=== PATIENT | male | born 1955 | race Caucasian/White ===

== ENCOUNTER 2018-07-13 08:53 | Outpatient (CLI) | payer OTHER ==
--- NOTE | 2018-07-13 13:30 | HP ---
HISTORY OF PRESENT ILLNESS: Mr. Tanvir Bocanegra is a very pleasant 62-year-old gentleman, who [facility] evaluation of edema and erythema of the left lower extremity, which has been present for a little over 8 weeks. The patient states that in the summer of last year, he experienced severe itching of his left lower extremity. He states that because of the severity of the itching of his left lower leg, he was seen in the emergency department. At a followup visit with Dr. Burgos, the patient was placed on a course of p.o. antibiotics to which he was allergic. The patient states that he was then placed on Bactrim to which he was also allergic. The patient states that he was seen by Dr. Burgos on 4 occasions, and at the time of his last visit with Dr. Burgos, referred to the [facility] for further evaluation and treatment. The patient states that due to the severity of the itching of his left lower leg, he was unable to work and also experienced a loss of appetite. PAST MEDICAL HISTORY: 1. Diabetes mellitus. 2. Hypertension. 3. Arthritis. PAST SURGICAL HISTORY: Left foot surgery. MEDICATIONS: 1. Norvasc. 2. Celexa. 3. Adderall. 4. Atarax. 5. Quinapril. 6. Viagra. ALLERGIES: SULFA. SOCIAL HISTORY: Social history is significant for tobacco use of up to 1/2 pack of cigarettes per day for 40 years. The patient admits to the consumption of 2 drinks per day also for 40 years. FAMILY HISTORY: Family history is negative for diabetes mellitus or coronary artery disease. PHYSICAL EXAMINATION: VITAL SIGNS: Temperature 98.3, pulse 72, respirations 19, and blood pressure 122/71. Accu-Chek 155. GENERAL: A 62-year-old gentleman, sitting on table in examination room, in no acute distress. HEENT: Normocephalic, atraumatic. NECK: No nuchal rigidity. CHEST: Clear to auscultation. CV: Regular rate and rhythm. ABDOMEN: Soft. EXTREMITIES: Erythema and edema of the left lower leg is present on exam today. Varicosities and hemosiderin deposition are also present over the right and left lower legs. No open wounds are present over the right or left lower leg. No maceration of the skin of the left lower leg is present. A dorsalis pedis pulse is palpable on the left. NEURO: Grossly nonfocal. ASSESSMENT AND PLAN: 1. Varicose veins of lower extremities with inflammation. The patient has been given a prescription for Synalar ointment 0.025% for stasis dermatitis. He has been instructed to cleanse the skin of his left lower leg with Dove soap and water, pat dry, and apply the ointment after cleansing and patting dry. The patient states he will return to clinic in 2 weeks, if the preceding measures have failed to provide relief for the severe itching associated with his stasis dermatitis. 2. Diabetes mellitus. The patient's Accu-Chek in clinic today is 155. 3. Hypertension. 4. Arthritis. Job ID: [id number]
== END 2018-07-13 08:54 | disposition home or self-care (01) ==
LOC: WCC 08:53
PROVIDERS: ATTEND Family Medicine
DX: I83.12 Varicose veins of left lower extremity with inflammation (principal); E11.9 Type 2 diabetes mellitus without complications; I10 Essential (primary) hypertension; M19.90 Unspecified osteoarthritis, unspecified site
CPT/HCPCS: 36416; 97602; 99203; G0463